=== PATIENT | female | born 1955 | race Caucasian/White ===

== ENCOUNTER 2019-12-13 11:18 | Emergency (ER) | payer OTHER, BC ==
[~2019-12-13] VITALS: Ht 162.6 cm; Wt 71.2 kg
[2019-12-13 13:09] LABS: microscopic required? YES; urine erythrocyte 3+ (NEGATIVE)
[2019-12-13 15:45] VITALS: BP 140/82
== END 2019-12-13 15:45 | disposition home or self-care (01) ==
LOC: ED 11:18
PROVIDERS: Emergency Medicine
DX: M51.36 Other intervertebral disc degeneration, lumbar region (principal); I10 Essential (primary) hypertension; R32 Unspecified urinary incontinence; F32.9 Major depressive disorder, single episode, unspecified; Z98.890 Other specified postprocedural states; Z90.89 Acquired absence of other organs; Z90.710 Acquired absence of both cervix and uterus
CPT/HCPCS: J1100; J1885